=== PATIENT | female | born 1945 | race Caucasian/White ===

== ENCOUNTER 2023-04-03 09:13 | Inpatient (IN) | payer MEDICARE, OTHER ==
[~2023-04-03] VITALS: Ht 162.6 cm; Wt 74.9 kg
[2023-04-03] VITALS (22 sets, daily range): BP systolic 93–134; BP diastolic 47–93; PULSE 65–90; RESP 8–22; TEMP 98.1–98.6; O2SAT 97–100
[2023-04-03] MEDS ORDERED: NITROGLYCERIN 2% OINT 1 GM PKT TOP ONE (09:30)
[2023-04-03] MEDS ORDERED: ASPIRIN 81 MG CHEW TAB PO ONE (09:30)
[2023-04-03] MEDS ORDERED: SODIUM CHLORIDE 0.9% 1000ML 1,000 ML ONE ×2 (09:55→10:01)
[2023-04-03] MEDS ORDERED: HEPARIN SOD (PORCINE) 1000 UNIT/ML 30ML ONE (10:00)
[2023-04-03] MEDS ORDERED: LIDOCAINE HCL 2% LOCAL 20 ML VIAL ONE (10:00)
[2023-04-03] MEDS ORDERED: HEPARIN SOD/SOD CHLORIDE 2,000 ML ONE (10:01)
[2023-04-03] MEDS ORDERED: IOPAMIDOL 370 MG/ML 100 ML INFUS..BTL INJ ONE ×2 (10:01→11:01)
[2023-04-03] MEDS ORDERED: NITROGLYCERIN/D5W 200 MCG/ML 250 ML ONE (10:02)
[2023-04-03 10:12] LABS: BASOPHILS % 0.4 % (0.0-1.0); EOSINOPHILS # (AUTO) 0.1 (0.0-0.4); EOSINOPHILS % 0.4 % (0.0-6.0); HEMATOCRIT 38.9 % (34.2-44.1); HEMOGLOBIN 12.6 g/dL (12.0-16.0); LYMPHOCYTES % 44.5 % (18.0-39.1); MEAN CORPUSCULAR HEMOGLOBIN 28.5 pg (28-32); MEAN CORPUSCULAR HGB CONC 32.4 g/dL (31-35); MONOCYTES # (AUTO) 0.8 (0.2-0.8); MONOCYTES % 7.4 % (4.4-11.3); NEUTROPHILS # (AUTO) 5.3 (2.1-6.9); PLATELET COUNT 338 x10e3/uL (140-360); RED BLOOD COUNT 4.42 x10e6/uL (3.6-5.1)
[2023-04-03] MEDS: SODIUM CHLORIDE 0.9% 1000ML 1,000 ML IV SCH ×2 (10:17→16:52)
[2023-04-03 10:24] LABS: INR 0.91; PARTIAL THROMBOPLASTIN TIME 27.8 seconds (23.8-35.5); PROTHROMBIN TIME 12.8 seconds (11.9-14.5)
[2023-04-03 10:30] LABS: ALANINE AMINOTRANSFERASE 19 IU/L (0-55); ALBUMIN 4.1 g/dL (3.5-5.0); ALBUMIN/GLOBULIN RATIO 1.1 (0.8-2.0); ALKALINE PHOSPHATASE 71 IU/L (40-150); ANION GAP 14.2 mmol/L (8-16); BLOOD UREA NITROGEN 18 mg/dL (7-26); BUN/CREATININE RATIO 23 (6-25); CALCIUM 9.9 mg/dL (8.4-10.2); CARBON DIOXIDE 24 mmol/L (22-29); CHLORIDE 103 mmol/L (98-107); CREATINE KINASE 84 IU/L (29-168); CREATININE, SERUM 0.77 mg/dL (0.57-1.11); GLUCOSE 99 mg/dL (74-118); MAGNESIUM 2.4 MG/DL (1.3-2.1); POTASSIUM 4.2 mmol/L (3.5-5.1); SODIUM 137 mmol/L (136-145)
[2023-04-03] MEDS ORDERED: MIDAZOLAM HCL 2 MG/2 ML VIAL ONE (10:32)
[2023-04-03] MEDS ORDERED: FENTANYL CITRATE/PF 100MCG/2 ML INJ ONE (10:33)
[2023-04-03] MEDS ORDERED: BIVALRIUDIN 250 MG/VIAL VIAL IV ONE (10:52)
[2023-04-03] MEDS ORDERED: CLOPIDOGREL BISULFATE 75 MG TAB ONE (11:00)
[2023-04-03] MEDS ORDERED: ONDANSETRON HCL INJ 2MG/ML 2ML 2 MG/ML VIAL IV PRN (11:15)
[2023-04-03] MEDS ORDERED: HYDROCODONE/APAP 5MG-325MG TAB PO PRN (11:15)
[2023-04-03] MEDS ORDERED: SODIUM CHLORIDE 0.9% 1000ML 1,000 ML IV SCH (11:15)
[2023-04-03] MEDS ORDERED: ADENOSINE 6MG/2ML 1 ML ONE (11:20)
[2023-04-03] MEDS ORDERED: SODIUM CHLORIDE 0.9% 250ML 250 ML ONE (11:21)
[2023-04-03] MEDS ORDERED: HYDROCHLOROTH12.5 MG PO (13:29)
[2023-04-03] MEDS ORDERED: LOSARTAN POTAS100 MG PO (13:29)
[2023-04-03] MEDS ORDERED: ASPIRIN EC81 MG PO (13:40)
[2023-04-03] MEDS ORDERED: FISH OIL 1,2001 EACH (13:40)
[2023-04-03] MEDS ORDERED: FISH OIL 1,201200 MG PO (13:40)
[2023-04-03] MEDS ORDERED: MULTI-VITAMIN1 EACH PO (13:40)
[2023-04-03] MEDS ORDERED: VITAMIN D325 MCG PO (13:40)
[2023-04-03] MEDS ORDERED: VITAMIN B COMP1 EACH PO (13:40)
[2023-04-03] MEDS ORDERED: LOSARTAN POTASSIUM 25 MG TAB PO SCH (17:00)
[2023-04-03] MEDS ORDERED: METOPROLOL TARTRATE 25 MG TAB PO SCH (17:00)
[2023-04-03] MEDS ORDERED: ATORVASTATIN 40 MG TAB PO SCH (21:00)
[2023-04-03] MEDS ORDERED: LORATADINE 10 MG TAB PO PRN (22:45)
[2023-04-04] VITALS (28 sets, daily range): BP systolic 92–126; BP diastolic 43–76; PULSE 65–84; RESP 15–20; TEMP 98.2; O2SAT 95–100
[2023-04-04] MEDS: SODIUM CHLORIDE 0.9% 1000ML 1,000 ML IV SCH (05:08)
[2023-04-04 06:32] LABS: BASOPHILS % 0.3 % (0.0-1.0); EOSINOPHILS % 0.4 % (0.0-6.0); HEMATOCRIT 32.1 % (34.2-44.1); HEMOGLOBIN 10.1 g/dL (12.0-16.0); LYMPHOCYTES # (AUTO) 3.7 (1.0-3.2); LYMPHOCYTES % 33.3 % (18.0-39.1); MEAN CORPUSCULAR HEMOGLOBIN 28.5 pg (28-32); MEAN CORPUSCULAR HGB CONC 31.5 g/dL (31-35); MEAN CORPUSCULAR VOLUME 90.4 fL (81-99); MONOCYTES % 9.2 % (4.4-11.3); NEUTROPHILS # (AUTO) 6.2 (2.1-6.9); NEUTROPHILS % 56.4 % (38.7-80.0); PLATELET COUNT 276 x10e3/uL (140-360); RED BLOOD COUNT 3.55 x10e6/uL (3.6-5.1)
[2023-04-04 07:03] LABS: ALBUMIN 3.2 g/dL (3.5-5.0); ANION GAP 12.2 mmol/L (8-16); CALCIUM 8.9 mg/dL (8.4-10.2); CHOL/HDL RATIO 4.2 (3.0-3.6); CREATININE, SERUM 0.67 mg/dL (0.57-1.11); POTASSIUM 4.2 mmol/L (3.5-5.1)
[2023-04-04] MEDS ORDERED: ASPIRIN 81 MG ENTERIC COATED PO SCH (09:00)
[2023-04-04] MEDS ORDERED: CLOPIDOGREL BISULFATE 75 MG TAB PO SCH (09:00)
[2023-04-04] MEDS ORDERED: HYDROCHLOROTHIAZIDE 25 MG TAB PO SCH (09:00)
== END 2023-04-04 09:50 | disposition home or self-care (01) | DRG 247 ==
LOC: EDBD 09:13 → ER 09:19 → ERHOLD 10:12 → ICU 12:45
PROVIDERS: ADMIT Internal Medicine; ATTEND Internal Medicine
PROC: 027035Z Dilation of Coronary Artery, One Artery with Two Drug-eluting Intraluminal Devices, Percutaneous Approach (ICD-10-PCS; principal; 2023-04-03)
PROC: 02703ZZ Dilation of Coronary Artery, One Artery, Percutaneous Approach (ICD-10-PCS; 2023-04-03)
PROC: 4A023N7 Measurement of Cardiac Sampling and Pressure, Left Heart, Percutaneous Approach (ICD-10-PCS; 2023-04-03)
PROC: B2111ZZ Fluoroscopy of Multiple Coronary Arteries using Low Osmolar Contrast (ICD-10-PCS; 2023-04-03)
PROC: 3E07317 Introduction of Other Thrombolytic into Coronary Artery, Percutaneous Approach (ICD-10-PCS; 2023-04-03)
DX: I21.4 Non-ST elevation (NSTEMI) myocardial infarction (principal); I25.119 Atherosclerotic heart disease of native coronary artery with unspecified angina pectoris; I10 Essential (primary) hypertension; E78.5 Hyperlipidemia, unspecified; I73.00 Raynaud's syndrome without gangrene
CPT/HCPCS: 0223U; 36415; 71045; 76937; 80053; 80061; 82550; 82553; 83735; 83880; 84484; 85025; 85610; 85730; 92920; 92928; 93005; 93306; 93458; 94799; 99152; 99153; 99284; C1725; C1760; C1769; C1876; C1887; J0153; J0583; J1644; J2001; J2250; J7030; J7050; Q9967

== ENCOUNTER 2023-04-07 09:19 | Emergency (ER) | payer MEDICARE, OTHER ==
[~2023-04-07] VITALS: Ht 162.6 cm; Wt 74.8 kg
[~2023-04-07 09:19] MED LIST: ASPIRIN EC81 MG PO; FISH OIL 1,2001 EACH; FISH OIL 1,201200 MG PO; HYDROCHLOROTH12.5 MG PO; LOSARTAN POTAS100 MG PO; MULTI-VITAMIN1 EACH PO; VITAMIN B COMP1 EACH PO; VITAMIN D325 MCG PO
[2023-04-07 09:53] LABS: BASOPHILS % 0.4 % (0.0-1.0); EOSINOPHILS # (AUTO) 0.1 (0.0-0.4); EOSINOPHILS % 0.7 % (0.0-6.0); HEMATOCRIT 25.1 % (34.2-44.1); HEMOGLOBIN 8.1 g/dL (12.0-16.0); LYMPHOCYTES % 27.4 % (18.0-39.1); MEAN CORPUSCULAR HGB CONC 32.3 g/dL (31-35); MONOCYTES # (AUTO) 0.8 (0.2-0.8); MONOCYTES % 7.3 % (4.4-11.3); NEUTROPHILS % 63.8 % (38.7-80.0); PLATELET COUNT 267 x10e3/uL (140-360); RED BLOOD COUNT 2.79 x10e6/uL (3.6-5.1)
[2023-04-07 10:08] LABS: ANION GAP 13.3 mmol/L (8-16); CALCIUM 9.3 mg/dL (8.4-10.2); CREATININE, SERUM 0.68 mg/dL (0.57-1.11); POTASSIUM 3.3 mmol/L (3.5-5.1)
[2023-04-07 10:17] LABS: INR 0.99; PARTIAL THROMBOPLASTIN TIME 29.2 seconds (23.8-35.5); PROTHROMBIN TIME 13.6 seconds (11.9-14.5)
[2023-04-07] MEDS ORDERED: POTASSIUM CHLORIDE 20 MEQ TAB CR PO ONE ×2 (12:33→15:41)
[2023-04-07] MEDS ORDERED: HYDROCODONE/APAP 5MG-325MG TAB PO ONE (15:00)
[2023-04-07 15:04] VITALS: O2SAT 99
== END 2023-04-07 15:52 | disposition other institution (70) ==
LOC: ER 09:21
DX: R10.31 Right lower quadrant pain (principal); I72.4 Aneurysm of artery of lower extremity; E87.6 Hypokalemia; I10 Essential (primary) hypertension; E78.5 Hyperlipidemia, unspecified; M54.9 Dorsalgia, unspecified; G89.29 Other chronic pain; M81.0 Age-related osteoporosis without current pathological fracture; R94.31 Abnormal electrocardiogram [ECG] [EKG]; I25.2 Old myocardial infarction; Z85.828 Personal history of other malignant neoplasm of skin; Z20.822 Contact with and (suspected) exposure to COVID-19
CPT/HCPCS: 0223U; 36415; 80048; 85025; 85610; 85730; 93005; 93926; 99284

== ENCOUNTER 2024-11-19 21:15 | Emergency (ER) | payer MEDICARE, OTHER ==
[~2024-11-19] VITALS: Ht 162.6 cm; Wt 72.6 kg
[2024-11-19 21:20] VITALS: PULSE 99; RESP 20; TEMP 98.3
[2024-11-19] MEDS: CEPHALEXIN MONOHYDRATE 250 MG CAP PO STA (22:12)
[2024-11-19] MEDS ORDERED: PYRIDIUM100 MG PO (22:12)
[2024-11-19] MEDS ORDERED: KEFLEX125 MG/5 M PO (22:13)
[2024-11-19 22:17] VITALS: BP 139/67; PULSE 94; RESP 19; TEMP 98; O2SAT 100
== END 2024-11-19 22:24 | disposition home or self-care (01) ==
LOC: FSED 21:17
DX: R30.0 Dysuria (principal); N39.0 Urinary tract infection, site not specified; I10 Essential (primary) hypertension; M54.9 Dorsalgia, unspecified; G89.29 Other chronic pain; M81.0 Age-related osteoporosis without current pathological fracture; I25.2 Old myocardial infarction; Z85.828 Personal history of other malignant neoplasm of skin
CPT/HCPCS: 81003; 99283

== ENCOUNTER 2024-12-29 16:57 | Emergency (ER) | payer MEDICARE, OTHER ==
[~2024-12-29] VITALS: Ht 162.6 cm; Wt 72.6 kg
[~2024-12-29 16:57] MED LIST changes: +KEFLEX125 MG/5 M PO; +PYRIDIUM100 MG PO
[2024-12-29 17:02] VITALS: TEMP 98.3
[2024-12-29 17:45] LABS: BASOPHILS # (AUTO) 0.1 (0.0-0.1); BASOPHILS % 0.5 % (0.0-1.0); EOSINOPHILS # (AUTO) 0.1 (0.0-0.4); EOSINOPHILS % 1.2 % (0.0-6.0); HEMATOCRIT 32.3 % (34.2-44.1); HEMOGLOBIN 10.1 g/dL (12.0-16.0); LYMPHOCYTES # (AUTO) 4.5 (1.0-3.2); LYMPHOCYTES % 42.9 % (18.0-39.1); MEAN CORPUSCULAR HEMOGLOBIN 23.3 pg (28-32); MEAN CORPUSCULAR HGB CONC 31.3 g/dL (31-35); MEAN CORPUSCULAR VOLUME 74.4 fL (81-99); MONOCYTES # (AUTO) 0.7 (0.2-0.8); MONOCYTES % 6.5 % (4.4-11.3); NEUTROPHILS # (AUTO) 5.1 (2.1-6.9); NEUTROPHILS % 48.6 % (38.7-80.0); PLATELET COUNT 403 x10e3/uL (140-360); RED BLOOD COUNT 4.34 x10e6/uL (3.6-5.1); WHITE BLOOD COUNT 10.43 x10e3/uL (4.8-10.8)
[2024-12-29 17:49] LABS: INR 0.84; PARTIAL THROMBOPLASTIN TIME 26.7 seconds (23.8-35.5)
[2024-12-29] MEDS: SODIUM CHLORIDE 0.9% 1000ML 1,000 ML IV STA (17:51)
[2024-12-29 18:00] LABS: ALANINE AMINOTRANSFERASE 18 IU/L (0-55); ALBUMIN 4.3 g/dL (3.5-5.0); ALBUMIN/GLOBULIN RATIO 1.1 (0.8-2.0); ALKALINE PHOSPHATASE 75 IU/L (40-150); ANION GAP 17.7 mmol/L (8-16); BILIRUBIN,TOTAL 0.4 mg/dL (0.2-1.2); BLOOD UREA NITROGEN 25 mg/dL (7-26); BUN/CREATININE RATIO 24 (6-25); CALCIUM 10.1 mg/dL (8.4-10.2); CARBON DIOXIDE 21 mmol/L (22-29); CHLORIDE 105 mmol/L (98-107); CREATINE KINASE 113 IU/L (29-168); CREATININE, SERUM 1.04 mg/dL (0.57-1.11); EST GLOMERULAR FILTRATION RATE 55 ML/MIN (>=60); GLUCOSE 128 mg/dL (74-118); MAGNESIUM 2.3 MG/DL (1.3-2.1); POTASSIUM 3.7 mmol/L (3.5-5.1); SODIUM 140 mmol/L (136-145); TOTAL PROTEIN 8.2 g/dL (6.5-8.1)
[2024-12-29 18:18] LABS: CORONAVIRUS COVID-19 AG NEGATIVE (NEGATIVE); INFLUENZA A AG NEGATIVE (NEGATIVE); INFLUENZA B AG NEGATIVE (NEGATIVE)
[2024-12-29 18:19] LABS: THYROID STIMULATING HORMONE 3.236 uIU/mL (0.350-4.940)
[2024-12-29 18:20] LABS: TROPONIN I < 0.001 ng/mL (0-0.300)
[2024-12-29 18:45] VITALS: PULSE 84; RESP 12; O2SAT 95
== END 2024-12-29 18:48 | disposition home or self-care (01) ==
LOC: ER 17:49
DX: R00.2 Palpitations (principal); R53.1 Weakness; I10 Essential (primary) hypertension; E78.5 Hyperlipidemia, unspecified; Z11.52 Encounter for screening for COVID-19; Z85.828 Personal history of other malignant neoplasm of skin; Z95.5 Presence of coronary angioplasty implant and graft
CPT/HCPCS: 36415; 71045; 80053; 82550; 83735; 84443; 84484; 85025; 85610; 85730; 87428; 93005; 99284; J7030